=== PATIENT | male | born 1990 | race Caucasian/White ===

== ENCOUNTER 2016-12-29 02:25 | Emergency (ER) | payer OTHER ==
[~2016-12-29] VITALS: Ht 177.8 cm; Wt 72.6 kg
[2016-12-29] MEDS ORDERED: PROMETHAZINE HCL 25 MG/1 ML VIAL IM ONE (02:45)
[2016-12-29] MEDS ORDERED: HYDROMORPHONE 1 MG/1 ML DISP.SYRIN IM ONE (02:45)
[2016-12-29] MEDS: HYDROMORPHONE 1 MG/1 ML DISP.SYRIN IV ONE (02:46)
[2016-12-29] MEDS: ONDANSETRON IV *ER 4 MG/2 ML VIAL IV ONE (02:47)
--- NOTE | 2016-12-29 02:50 | NUR ---
patient comes into Er today with complaint of left shoulder dislocation. patient states he was in [facility], the MD there attempted x 3 to reduce the shoulder. She was not successful, and told him to follow up with Ortho in the am. Patient states he wants to have the MD in our ER attempt to reduce the shoulder.
[2016-12-29] MEDS ORDERED: ONDANSETRON 4 MG/2 ML VIAL ONE (02:59)
[2016-12-29] MEDS ORDERED: HYDROMORPHONE 2 MG/1 ML DISP.SYRIN ONE (02:59)
[2016-12-29] MEDS: PROPOFOL 200 MG/20 ML BOTTLE IV ONE (03:11)
--- NOTE | 2016-12-29 03:15 | NUR ---
Concious sedation complete for patient left shoulder reduction. concent complete at 0307. time out called @ 0310. Primary RN Adrien Rivas, Secondary Rn Keke Harvey, ER MD Davon Gunn, RT Tadeo Deal all present for time out and throughout intra and post procedure. Patient Juve score prior to procedure 10@ 0310 (Time Out), intra procedure carmenza score 7 @0312, procedure complete @0312. Post procedure carmenza score is 10 @ 0314. SaO2 on room air @ 100% @ 0315.
[2016-12-29] MEDS ORDERED: PROPOFOL 200 MG/20 ML BOTTLE ONE (03:16)
--- NOTE | 2016-12-29 04:15 | NUR ---
Patient discharged to home in stable conditon. Written and verbal after care instructions given. Patient verbalizes understanding of instructions. patient awake, alert, oriented x 4. Able to make needs known. no acute distress noted. Patient ambulated from ER with stable gait. All belongings with patient. peripheral IV removed prior to dischrage. patient will be driven home in private vehicle by significant other.
[2016-12-29 04:20] VITALS: BP 129/78
== END 2016-12-29 04:20 | disposition home or self-care (01) ==
LOC: ER 02:25
DX: S43.005A Unspecified dislocation of left shoulder joint, initial encounter (principal); Z88.6 Allergy status to analgesic agent; X58.XXXA Exposure to other specified factors, initial encounter; Y93.89 Activity, other specified; Y92.89 Other specified places as the place of occurrence of the external cause; Y99.8 Other external cause status
CPT/HCPCS: 73020; 73030; A4663; J1170; J2405; J3490

== ENCOUNTER 2016-12-29 14:44 | Emergency (ER) | payer OTHER ==
[~2016-12-29] VITALS: Ht 180.3 cm; Wt 72.6 kg
[2016-12-29] MEDS ORDERED: MORPHINE SULFATE 10 MG/1 ML DISP.SYRIN ONE (15:39)
[2016-12-29] MEDS ORDERED: ONDANSETRON 4 MG/2 ML VIAL ONE (15:40)
[2016-12-29] MEDS ORDERED: PROPOFOL 200 MG/20 ML BOTTLE ONE (15:54)
[2016-12-29] MEDS: KETOROLAC TROMETHAMINE 30 MG INJ IVP ONE (16:36)
[2016-12-29] MEDS: HYDROCODONE/APAP 5-325MG TABLET PO ONE (16:37)
[2016-12-29] MEDS: MORPHINE SULFATE 4 MG/1 ML DISP.SYRIN IV ONE (16:39)
[2016-12-29] MEDS: ONDANSETRON 4 MG/2 ML VIAL IV ONE (16:39)
[2016-12-29] MEDS: PROPOFOL 200 MG/20 ML BOTTLE IV ONE (16:40)
[2016-12-29] MEDS ORDERED: KETOROLAC TROMETHAMINE 30 MG INJ ONE (16:47)
[2016-12-29] MEDS ORDERED: HYDROCODONE/APAP 5-325MG TABLET ONE (16:48)
--- NOTE | 2016-12-29 16:59 | NUR ---
PT WAS EVALUATED BY DR GRAVES. CLOSED REDUCTION OF LEFT SHOULDER WITH MODERATE SEDATION WAS PERFORMED BY DR GRAVES. PT TOLERATED TO PROCEDURE WITHOUT COMPLICATIONS. ( SEE MODERATE SEDATION DOCUMENTATION). PT WAS D/C TO HOME. D/C INSTRUCTIONS GIVEN TO THE PT.
[2016-12-29 17:01] VITALS: BP 129/69
== END 2016-12-29 17:02 | disposition home or self-care (01) ==
LOC: ER 14:45
DX: M24.412 Recurrent dislocation, left shoulder (principal); Z88.6 Allergy status to analgesic agent
CPT/HCPCS: 23650; 73030 ×2; 96374; 96375; 99152; 99285; A4663; J1885; J2270; J2405; J3490; J7030

== ENCOUNTER 2017-03-29 01:12 | Emergency (ER) | payer OTHER ==
[~2017-03-29] VITALS: Ht 177.8 cm; Wt 68.0 kg
[2017-03-29] MEDS ORDERED: LORAZEPAM 2 MG/1 ML VIAL IV ONE (01:45)
[2017-03-29] MEDS ORDERED: PROPOFOL 200 MG/20 ML BOTTLE ONE (02:19)
[2017-03-29] MEDS ORDERED: ONDANSETRON 4 MG/2 ML VIAL ONE (02:38)
[2017-03-29] MEDS ORDERED: MORPHINE SULFATE 4 MG/1 ML DISP.SYRIN ONE (02:38)
[2017-03-29] MEDS ORDERED: PROPOFOL 1,000 MG/100 ML BOTTLE IV ONE (03:15)
[2017-03-29] MEDS ORDERED: MORPHINE SULFATE 4 MG/1 ML DISP.SYRIN IV ONE (03:15)
[2017-03-29] MEDS ORDERED: ONDANSETRON 4 MG/2 ML VIAL IV ONE (03:15)
--- NOTE | 2017-03-29 03:58 | NUR ---
CLOSED REDUCTION OF DISLOCATED LEFT SHOULDER DONE UNDER CONSCIOUS SEDATION PER PROTOCOL W/RT IN ATTENDANCE. PT RECEIVED PROPOFOL 90 MG IN DIVIDED DOSES. PRE- AND POST PROCEDURE XRAY DONE W/ER MD STAR DUMONT. PT D/C'D HOME ICO . FULLY AWAKE, GAIT STEADY.
--- NOTE | 2017-03-29 04:00 | NUR ---
SEE CONSCIOUS SEDATION PAPERS
[2017-03-29 04:02] VITALS: BP 127/36
== END 2017-03-29 04:04 | disposition home or self-care (01) ==
LOC: ER 01:13
DX: M24.412 Recurrent dislocation, left shoulder (principal); J18.9 Pneumonia, unspecified organism; Z88.5 Allergy status to narcotic agent
CPT/HCPCS: 23650; 73030 ×2; 96374; 96375; 99152; 99285; A4663; J2270; J2405; J3490

== ENCOUNTER 2017-06-02 18:54 | Emergency (ER) | payer OTHER ==
[~2017-06-02] VITALS: Ht 177.8 cm; Wt 72.6 kg
--- NOTE | 2017-06-02 19:25 | NUR ---
1924-PATIENT PREPPED FOR CONSCIOUS SEDATION. CONSENT REVIEWED WITH SIGNED BY . 1928-TIME OUT DONE AT BEDSIDE WITH MD, RN AND RT AT BEDSIDE. PLACED PATIENT ON 10L O2 VIA SIMPLE MASK. 1929- PROPOFOL 40MG IVP GIVEN PER MD ORDER. 1930- PROPOFOL 40 MG IVP GIVEN 1931- PROPOFOL 40MG IVP GIVEN. PATIENT SEDATED AND SHOULDR WAS REDUCED. 1934- PATIENT IS WAKING UP. VSS, SEE FLOWSHEET. 1939- PATIENT IS AWAKE, ALERT AND ORIENTED. O2 100% ON RA, SITTING UP IN [facility]. AT BEDSIDE.
[2017-06-02] MEDS ORDERED: HYDROMORPHONE 2 MG/1 ML DISP.SYRIN ONE (19:27)
[2017-06-02] MEDS ORDERED: ONDANSETRON 4 MG/2 ML VIAL ONE (19:27)
[2017-06-02] MEDS ORDERED: PROPOFOL 200 MG/20 ML BOTTLE ONE (19:27)
[2017-06-02] MEDS ORDERED: HYDROMORPHONE 1 MG/1 ML DISP.SYRIN IV ONE (19:30)
[2017-06-02] MEDS ORDERED: IV NORMAL SALINE 1000 ML BAG IV ONE (19:30)
[2017-06-02] MEDS ORDERED: ONDANSETRON 4 MG/2 ML VIAL IV ONE (19:30)
[2017-06-02] MEDS ORDERED: PROPOFOL 200 MG/20 ML BOTTLE IV ONE (19:30)
--- NOTE | 2017-06-02 20:09 | NUR ---
Patient discharged to home in stable conditon. Written and verbal after care instructions given. Patient verbalizes understanding of instructions. Patient alert and oriented. O2 sat 100%. Patient left ER and walks in steady gait. Accompanied by patient's , who will drive home. Patient c/o of no distress at this time.
[2017-06-02 20:11] VITALS: BP 116/72
== END 2017-06-02 20:12 | disposition home or self-care (01) ==
LOC: ER 18:56
DX: M24.412 Recurrent dislocation, left shoulder (principal); Z88.5 Allergy status to narcotic agent
CPT/HCPCS: 73020; A4663; J1170; J2405; J3490; J7030

== ENCOUNTER 2017-08-14 09:44 | Emergency (ER) | payer OTHER ==
[~2017-08-14] VITALS: Ht 177.8 cm; Wt 68.0 kg
[2017-08-14] MEDS ORDERED: MORPHINE SULFATE 2 MG/1 ML DISP.SYRIN IV ONE (10:17)
--- NOTE | 2017-08-14 10:19 | NUR ---
dr Mckinnon evaluated the pt.
[2017-08-14] MEDS ORDERED: ONDANSETRON 4 MG/2 ML VIAL ONE ×3 (10:27→14:33)
[2017-08-14] MEDS ORDERED: MORPHINE SULFATE 4 MG/1 ML DISP.SYRIN ONE (10:28)
[2017-08-14] MEDS ORDERED: IV NS 1000 ML 1,000 ML IV ONE (10:30)
[2017-08-14] MEDS ORDERED: ONDANSETRON IV *ER 4 MG/2 ML VIAL IV ONE ×3 (10:30→14:30)
[2017-08-14] MEDS ORDERED: HYDROMORPHONE 1 MG/1 ML DISP.SYRIN IV ONE ×3 (10:37→11:45)
[2017-08-14] MEDS ORDERED: HYDROMORPHONE 2 MG/1 ML DISP.SYRIN ONE ×3 (10:55→12:07)
[2017-08-14] MEDS ORDERED: ETOMIDATE 20 MG/10 ML VIAL IV ONE (11:15)
--- NOTE | 2017-08-14 11:50 | NUR ---
CLOSED REDUCTION OF THE RIGHT SHOULDER WITH MODERATE SEDATION WAS PERFORMED BY DR BUCIO. SEE MODERATE SEDATION REPORT.
[2017-08-14] MEDS ORDERED: IV NS 1000 ML 1,000 ML IV PRN (12:00)
--- NOTE | 2017-08-14 12:23 | NUR ---
PT IS RESTING IN BED. NO S/S OF ACUTE DISTRESS AT THIS TIME.
[2017-08-14] MEDS ORDERED: PROPOFOL 1,000 MG/100 ML BOTTLE IV ONE ×2 (13:28→13:45)
[2017-08-14] MEDS ORDERED: PROPOFOL 200 MG/20 ML BOTTLE ONE (13:33)
[2017-08-14] MEDS ORDERED: KETOROLAC TROMETHAMINE 30 MG INJ ONE (14:27)
--- NOTE | 2017-08-14 14:28 | NUR ---
SECOND PROCEDURE OF CLOSED REDUCTIONN OF THE LEFT SHOULDER WITH MODERATE SEDATION WAS PERFORMED BY DR BUCIO WITH DR WATSON. SEE PROCEDURE DOCUMENTATION. PT TOLERATED TO PROCEDURE WITHOUT COMPLICATIONS.
[2017-08-14] MEDS ORDERED: KETOROLAC TROMETHAMINE 30 MG INJ IVP ONE (14:30)
--- NOTE | 2017-08-14 14:43 | NUR ---
PT WAS D/C TO HOME. D/C INSTRUCTIONS GIVEN TO THE PT. PT A/O X4, PT CAN MOVE WITH ALL 4 EXTREMITIES WITHOUT LIMITATIONS, PT DENIES PAIN, NO SOB, NO N/V, GAIT IS STABLE.
[2017-08-14 14:48] VITALS: BP 131/69
== END 2017-08-14 14:50 | disposition home or self-care (01) ==
LOC: ER 09:44
DX: M24.412 Recurrent dislocation, left shoulder (principal); Z88.5 Allergy status to narcotic agent
CPT/HCPCS: 71045; 73020; 73030; A4663; J1170; J1885; J2270; J2405; J3490; J7030

== ENCOUNTER 2017-09-02 02:01 | Emergency (ER) | payer OTHER ==
[~2017-09-02] VITALS: Ht 177.8 cm; Wt 68.0 kg
[2017-09-02] MEDS ORDERED: ONDANSETRON IV *ER 4 MG/2 ML VIAL IV ONE ×2 (02:12→06:30)
[2017-09-02] MEDS ORDERED: HYDROMORPHONE 1 MG/1 ML DISP.SYRIN IV ONE ×2 (02:15→06:45)
[2017-09-02] MEDS ORDERED: IV NS 1000 ML 1,000 ML IV ONE (02:15)
[2017-09-02] MEDS ORDERED: LORAZEPAM 2 MG/1 ML VIAL IV ONE (02:16)
[2017-09-02] MEDS ORDERED: ONDANSETRON 4 MG/2 ML VIAL ONE ×2 (02:39→06:07)
[2017-09-02] MEDS ORDERED: HYDROMORPHONE 2 MG/1 ML DISP.SYRIN ONE ×3 (02:39→04:43)
[2017-09-02] MEDS ORDERED: LORAZEPAM 2 MG/1 ML VIAL ONE (02:40)
[2017-09-02] MEDS ORDERED: PROPOFOL 200 MG/20 ML BOTTLE ONE ×2 (04:22→04:58)
--- NOTE | 2017-09-02 05:11 | NUR ---
PT IN BED RESTING POSITIONED FOR COMFORT. VSS AND WNL. LT SHOULDER HAS BEEN REDUCED. XRAY IS NOW AT BEDSIDE TO CONFIRM PLACEMENT.
--- NOTE | 2017-09-02 05:45 | NUR ---
PATIENT FULLY AWAKE. A/OX3. SPEAKING WITH CLEAR SPEECH. ABLE TO TOLERATE PO INTAKE WITH NO N/V NOTED
--- NOTE | 2017-09-02 05:55 | NUR ---
DR BUCIO INTO RE EVAL PATIENT.
--- NOTE | 2017-09-02 06:00 | NUR ---
PATIENT ABLE TO AMBULATE TO RESTROOM WITH STEADY GAIT. URINATED 300ML OF CLEAR YELLOW URINE
--- NOTE | 2017-09-02 06:23 | NUR ---
Patient discharged to home in stable conditon. Patient reported being pain free prior to discharge. Written and verbal after care instructions given. Patient verbalizes understanding of instructions. Patient able to ambulate unassisted with a steady gait. Patient left with all personal belongings.
[2017-09-02] MEDS ORDERED: PROPOFOL 200 MG/20 ML BOTTLE IV ONE ×5 (06:34→06:45)
[2017-09-02 06:46] VITALS: BP 150/92
== END 2017-09-02 06:23 | disposition home or self-care (01) ==
LOC: ER 02:03
DX: M24.412 Recurrent dislocation, left shoulder (principal); Z88.5 Allergy status to narcotic agent
CPT/HCPCS: 23650; 73020 ×2; 96374; 96375; 96376; 99285; A4663; J1170 ×3; J2060; J2405 ×2; J3490 ×2; J7030